=== PATIENT | male | born 1955 | race Caucasian/White ===

== ENCOUNTER 2016-09-28 16:44 | Emergency (ER) | payer SELFPAY ==
[~2016-09-28] VITALS: Ht 172.7 cm; Wt 72.0 kg
[2016-09-28 17:32] LABS: HEMATOCRIT 48.8 % (39.0-50.0); HEMOGLOBIN 16.7 g/dl (14.0-18.0); IMMATURE GRANULOCYTES 0.5 % (0.0-1.0); MEAN CELL VOLUME 90.9 fL CALC (80.0-100.0); MEAN CORPUSCULAR HGB 31.1 pG CALC (26.0-32.0); MEAN CORPUSCULAR HGB CONC 34.2 g/L CALC (32.0-36.0); NEUT# 6.23 thou/uL (1.82-7.42); RED BLOOD COUNT 5.37 mill/uL (4.70-6.10); RED CELL DISTRI WIDTH 13.3 % (11.5-15.5)
[2016-09-28 17:42] LABS: ALBUMIN 4.1 g/dL (3.2-5.0); ALKALINE PHOSPHATASE 86 u/l (38-126); AMYLASE 243 u/l (30-110); ANION GAP 17 (6-22 (CALC)); BILIRUBIN, TOTAL 0.6 mg/dL (0.0-1.4); BUN 15 mg/dL (9-20); BUN/CREATININE RATIO 12 (12-20 (CALC)); CALCIUM 9.7 mg/dL (8.4-10.2); CARBON DIOXIDE 24 mmol/l (22-30); CHLORIDE 100 mmol/l (95-108); CREATININE 1.3 mg/dL (0.7-1.3); GFR 57 ML/MIN (>=60 (CALC)); GFR FOR AFR.AMER. > 60 ML/MIN (>=60 (CALC)); GLUCOSE 104 mg/dL (75-110); LIPASE 138 u/l (23-300); POTASSIUM 4.3 mmol/l (3.5-5.1); SGOT/AST 17 u/l (17-59); SGPT/ALT 27 u/l (21-72); SODIUM 137 mmol/l (137-146); TOTAL PROTEIN 7.2 g/dL (6.3-8.2)
[2016-09-28] MEDS ORDERED: PERCOCET 5/325M1 TAB PO (18:18)
[2016-09-28 18:22] LABS: URINE BILIRUBIN - DIPSTICK NEGATIVE (NEGATIVE); URINE BLOOD DIPSTICK SMALL (NEGATIVE); URINE CLARITY CLEAR; URINE COLOR YELLOW; URINE GLUCOSE - DIPSTICK NEGATIVE (NEGATIVE); URINE KETONE TRACE mg/dL (NEGATIVE); URINE LEUK ESTERASE NEGATIVE (NEGATIVE); URINE NITRITE - DIPSTICK NEGATIVE (Negative); URINE PROTEIN - DIPSTICK TRACE mg/dL (NEG-TRACE); URINE SPECIFIC GRAVITY <=1.005; URINE UROBILINOGEN - DIPSTICK >=8.0 E.U./dL (0.2)
[2016-09-28 18:37] VITALS: BP 139/84
[2016-09-28 18:37] LABS: URINE SQUAMOUS EPITHELIAL CELL FEW EPI/hpf (0-FEW)
== END 2016-09-28 18:38 | disposition home or self-care (01) | DRG 694 ==
LOC: ED 16:44
PROVIDERS: Emergency Medicine
DX: N13.2 Hydronephrosis with renal and ureteral calculous obstruction (principal); F17.210 Nicotine dependence, cigarettes, uncomplicated; R10.32 Left lower quadrant pain; R11.0 Nausea

== ENCOUNTER 2017-04-08 21:25 | Emergency (ER) | payer SELFPAY ==
[~2017-04-08] VITALS: Ht 172.7 cm; Wt 72.3 kg
[~2017-04-08 21:25] MED LIST: PERCOCET 5/325M1 TAB PO
[2017-04-08] MEDS ORDERED: NAPROSYN500 MG PO (23:43)
[2017-04-08 23:45] VITALS: BP 108/71
== END 2017-04-08 23:45 | disposition home or self-care (01) | DRG 605 ==
LOC: ED 21:25
DX: S40.012A Contusion of left shoulder, initial encounter (principal); F17.210 Nicotine dependence, cigarettes, uncomplicated; W14.XXXA Fall from tree, initial encounter; Y93.H2 Activity, gardening and landscaping; Y92.89 Other specified places as the place of occurrence of the external cause

== ENCOUNTER 2017-09-06 14:22 | Emergency (ER) | payer SELFPAY ==
[~2017-09-06] VITALS: Ht 172.7 cm; Wt 77.3 kg
[~2017-09-06 14:22] MED LIST changes: +NAPROSYN500 MG PO
[2017-09-06] MEDS ORDERED: MOTRIN400 MG PO (14:38)
[2017-09-06] MEDS ORDERED: TAMSULOSIN0.4 MG PO (14:38)
[2017-09-06] MEDS ORDERED: KEFLEX500 M1 PO (14:38)
[2017-09-06 14:46] VITALS: BP 138/95
== END 2017-09-06 14:50 | disposition home or self-care (01) | DRG 392 ==
LOC: ED 14:22
DX: R10.9 Unspecified abdominal pain (principal); F17.210 Nicotine dependence, cigarettes, uncomplicated; Z87.442 Personal history of urinary calculi

== ENCOUNTER 2018-01-19 10:17 | Emergency (ER) | payer SELFPAY ==
[~2018-01-19] VITALS: Ht 172.7 cm; Wt 75.0 kg
[~2018-01-19 10:17] MED LIST changes: +KEFLEX500 M1 PO; +MOTRIN400 MG PO; +TAMSULOSIN0.4 MG PO
[2018-01-19] MEDS ORDERED: CLEOCIN300 MG PO (10:36)
[2018-01-19] MEDS ORDERED: TORADOL PO (10:36)
[2018-01-19 10:40] VITALS: BP 109/74
== END 2018-01-19 10:40 | disposition home or self-care (01) | DRG 159 ==
LOC: ED 10:17
DX: K04.7 Periapical abscess without sinus (principal); K02.9 Dental caries, unspecified; F17.210 Nicotine dependence, cigarettes, uncomplicated

== ENCOUNTER 2018-04-14 15:11 | Emergency (ER) | payer SELFPAY ==
[~2018-04-14] VITALS: Ht 172.7 cm; Wt 75.0 kg
[~2018-04-14 15:11] MED LIST changes: +CLEOCIN300 MG PO; +TORADOL PO
[2018-04-14 15:54] VITALS: BP 144/77
[2018-04-14 16:26] LABS: URINE BILIRUBIN - DIPSTICK NEGATIVE (NEGATIVE); URINE BLOOD DIPSTICK SMALL (NEGATIVE); URINE COLOR YELLOW; URINE GLUCOSE - DIPSTICK NEGATIVE (NEGATIVE); URINE KETONE NEGATIVE (NEGATIVE); URINE NITRITE - DIPSTICK NEGATIVE (Negative); URINE PROTEIN - DIPSTICK NEGATIVE (NEG-TRACE); URINE SPECIFIC GRAVITY >=1.030; URINE UROBILINOGEN - DIPSTICK 0.2 E.U./dL (0.2)
[2018-04-14 16:27] LABS: HEMATOCRIT 43.4 % (39.0-50.0); IMMATURE GRANULOCYTES 0.4 % (0.0-5.0); MEAN CELL VOLUME 90.6 fL CALC (80.0-100.0); MEAN CORPUSCULAR HGB 30.3 pG CALC (26.0-32.0); MEAN CORPUSCULAR HGB CONC 33.4 g/L CALC (32.0-36.0); NEUT# 7.24 thou/uL (1.82-7.42); RED BLOOD COUNT 4.79 mill/uL (4.70-6.10); RED CELL DISTRI WIDTH 13.2 % (11.5-15.5)
[2018-04-14 16:27] LABS: URINE CLARITY CLOUDY
[2018-04-14 16:28] LABS: URINE LEUK ESTERASE MODERATE (NEGATIVE)
[2018-04-14 16:29] LABS: BARBITURATES NEGATIVE (NEGATIVE); COCAINE NEGATIVE (NEGATIVE); METHADONE NEGATIVE (NEGATIVE); OXCYCODONE NEGATIVE (NEGATIVE); TETRAHYDROCANNABIONOL POSITIVE (NEGATIVE); TRICYLIC ANTIDEPRESSANTS NEGATIVE (NEGATIVE)
[2018-04-14 16:32] LABS: HEMOGLOBIN 14.5 g/dl (14.0-18.0)
[2018-04-14 16:36] LABS: URINE BACTERIA FEW hpf; URINE WBC >100 WBC/hpf (0-5)
[2018-04-14 16:47] LABS: ALBUMIN 4.1 g/dL (3.2-5.0); ALKALINE PHOSPHATASE 99 u/l (38-126); ANION GAP 11 (6-22 (CALC)); BILIRUBIN, TOTAL 0.4 mg/dL (0.0-1.4); BUN 18 mg/dL (9-20); BUN/CREATININE RATIO 15 (12-20 (CALC)); CARBON DIOXIDE 27 mmol/l (22-30); CHLORIDE 107 mmol/l (95-108); CREATININE 1.2 mg/dL (0.7-1.3); GFR > 60 ML/MIN (>=60 (CALC)); GFR FOR AFR.AMER. > 60 ML/MIN (>=60 (CALC)); MAGNESIUM 2.2 mg/dL (1.6-2.3); POTASSIUM 4.6 mmol/l (3.5-5.1); SODIUM 140 mmol/l (137-146)
[2018-04-14 16:49] LABS: ETHYL ALCOHOL 0 mg/dl (0-30); SGOT/AST 33 u/l (17-59)
== END 2018-04-14 16:55 | disposition left against medical advice (07) | DRG 880 ==
LOC: ED 15:11
PROVIDERS: Emergency Medicine
DX: F41.9 Anxiety disorder, unspecified (principal); F15.10 Other stimulant abuse, uncomplicated; F12.10 Cannabis abuse, uncomplicated; F17.210 Nicotine dependence, cigarettes, uncomplicated; Z91.19 Patient's noncompliance with other medical treatment and regimen

== ENCOUNTER 2018-11-14 17:42 | Emergency (ER) | payer BC ==
[~2018-11-14] VITALS: Ht 172.7 cm; Wt 72.7 kg
[2018-11-14] MEDS ORDERED: VISTARIL 50MG C50 M1 PO (18:47)
[2018-11-14 19:06] VITALS: BP 130/79
== END 2018-11-14 19:07 | disposition home or self-care (01) | DRG 880 ==
LOC: ED 17:42
DX: F41.9 Anxiety disorder, unspecified (principal); R44.1 Visual hallucinations; F17.200 Nicotine dependence, unspecified, uncomplicated

== ENCOUNTER 2019-10-30 15:06 | Emergency (ER) | payer BC ==
[~2019-10-30 15:06] MED LIST changes: +VISTARIL 50MG C50 M1 PO
[2019-10-30 16:18] LABS: HEMATOCRIT 45.1 % (39.0-50.0); HEMOGLOBIN 15.2 g/dl (14.0-18.0); IMMATURE GRANULOCYTES 0.4 % (0.0-5.0); MEAN CELL VOLUME 86.4 fL CALC (80.0-100.0); MEAN CORPUSCULAR HGB 29.1 pG CALC (26.0-32.0); MEAN CORPUSCULAR HGB CONC 33.7 g/dL CAL (32.0-36.0); NEUT# 9.99 thou/uL (1.82-7.42); RED BLOOD COUNT 5.22 mill/uL (4.70-6.10); RED CELL DISTRI WIDTH 12.8 % (11.5-15.5)
[2019-10-30 16:23] LABS: ALBUMIN 3.9 g/dL (3.2-5.0); ALKALINE PHOSPHATASE 111 u/l (38-126); ANION GAP 15 (6-22 (CALC)); BILIRUBIN, TOTAL 0.3 mg/dL (0.0-1.4); BUN 17 mg/dL (8-23); BUN/CREATININE RATIO 21 (12-20 (CALC)); CARBON DIOXIDE 21 mmol/l (22-30); CHLORIDE 102 mmol/l (95-108); CREATININE 0.9 mg/dL (0.7-1.3); GFR > 60 ML/MIN (>=60 (CALC)); GFR FOR AFR.AMER. > 60 ML/MIN (>=60 (CALC)); LIPASE 197 u/l (23-300); POTASSIUM 4.2 mmol/l (3.5-5.1); SGOT/AST 20 u/l (19-48); SODIUM 134 mmol/l (137-146); TOTAL PROTEIN 7.1 g/dL (6.3-8.2)
[2019-10-30 17:26] LABS: URINE BILIRUBIN - DIPSTICK NEGATIVE (NEGATIVE); URINE BLOOD DIPSTICK NEGATIVE (NEGATIVE); URINE COLOR YELLOW; URINE GLUCOSE - DIPSTICK NEGATIVE (NEGATIVE); URINE KETONE NEGATIVE (NEGATIVE); URINE LEUK ESTERASE TRACE (NEGATIVE); URINE NITRITE - DIPSTICK NEGATIVE (Negative); URINE PH 5.5 (4.5-8.0); URINE PROTEIN - DIPSTICK NEGATIVE (NEG-TRACE); URINE SPECIFIC GRAVITY 1.025; URINE UROBILINOGEN - DIPSTICK 0.2 E.U./dL (0.2)
[2019-10-30] MEDS ORDERED: DOXYCYC MONO100 M2 PO ×2 (18:10→18:18)
[2019-10-30 18:30] VITALS: BP 114/70
== END 2019-10-30 18:30 | disposition home or self-care (01) | DRG 728 ==
LOC: ED 15:06
PROVIDERS: Family Medicine
DX: N45.2 Orchitis (principal); N43.3 Hydrocele, unspecified; F17.200 Nicotine dependence, unspecified, uncomplicated